=== PATIENT | female | born 1940 | race African-American/Black ===

== ENCOUNTER 2018-01-21 11:41 | Inpatient (IN) | payer MEDICARE, MEDICAID ==
[~2018-01-21] VITALS: Ht 167.6 cm; Wt 58.9 kg
--- NOTE | ~2018-01-21 | MORECARE ---
CASE MANAGEMENT DISCHARGE SUMMARY PATIENT: SHAWNEE OCHOA UNIT: [id number] ADM DATE: 01/21/18 AGE: 77 : 38 SEX: F ROOM/BED: D.6211 AUTHOR: AL,DOC PHYSICIAN: REFERRING PHYSICIAN: MEJIA TINSLEY MD DATE OF SERVICE: 02/02/18 Discharge Plan Patient Name: SHAWNEE OCHOA Facility: [facility]:[place] : 1940 Planned Disposition: Nursing Facility [facility] Cert Anticipated Discharge Date: 02/02/18 Discharge Date: Expected LOS: 12 Initial Reviewer: MIKAEL Initial Review Date: 01/24/2018 Generated: 02/02/18 12:47 pm Comments DCP- Discharge Planning Updated by MIKAEL: James Burns on 02/02/18 10:[address] Patient Name: SHAWNEE OCHOA Encounter No: [id number] : 1940 Primary Insurance: [facility] [employer] Anticipated DC Date: 02-02-2018 Planned Disposition: Nursing Facility [facility] Cert External Planned Provider: [facility], [facility] MEDICAID BED DCP follow-up note: ANSHUL RECEIVED CALL FROM LEWIS OF [facility], . LEWIS RECEIVED UPDATE FROM ANSHUL, LEWIS HAS TALKED TO RACHEL AT [facility] OUTPATIENT DIALYSIS AND PATIENT HAS BEEN ACCEPTED WITH SCHEDULE FOR MWF, 1100AM, THE [facility] CAN ACCOMODATE THIS SCHEDULE AND WILL ACCEPT PT BACK TODAY. ANSHUL NOTIFIED PATIENT PATHWAYS COORDINATOR MANNY VIEYRA WHO [facility]NA CONTACT DIALYSIS UNIT TO CONFIRM ARRANGEMENT. LEWIS REPORTS PT WAS NOT ABLE TO SIT FOR DURATION OF TRANSPORT TO [place] PRIOR TO ADMISSION AND WILL LIKELY REQUIRE AMBULANCE TO GET BACK TO [place] TODAY. PT NOTIFIED AND IN AGREEMENT WITH RETURN TO [facility]IOR [facility] TODAY. IMPORTANT MESSAGE FROM MEDICARE PROVIDED AND EXPLAINED. DHARMESH JARVIS NOTIFIED. CARBONATING STONE CLEANER NURSE NOTIFIED. FOR DISCHARGE BACK TO [facility], CALL NURSE REPORT TO [facility] AT [phone]. FAX DISCHARGE INFORMATION TO [facility] AT [phone]. PT TO TRANSPORT VIA AMBULANCE. Roll Coating Machine Operator: James Burns. DCP- Discharge Planning Updated by [id number]: James Burns on 02/01/18 9:[address] Patient Name: SHAWNEE OCHOA Encounter No: [id number] : 1940 Primary Insurance: [facility] [employer] SOL[employer]IONS Anticipated DC Date: Planned Disposition: Nursing Facility [facility] Cert External Planned Provider: [facility] TER[facility] MEDICAID BED DCP follow-up note: ANSHUL RECEIVED CALL FROM LEWIS OF [facility], . LEWIS RECEIVED UPDATE FROM , NOTIFIED PT WILL REQUIRE OUTPATIENT DIALYSIS AND PATIENT PATHWAYS COORDINATOR HAS REQUESTED TUESDAY,TUESDAY, TUESDAY OUTPATIENT DIALYSIS SCHEDULE. LEWIS WILL CALL DIALYSIS CENTER ALSO TO ENSURE SCHEDULE THE [facility] CAN ACCOMODATE IS RECEIVED. PT WILL NEED A Tuesday SCHEDULE FOR THE [facility] TO ACCEPT BACK FOR [facility] THEY DO NOT HAVE WEEKEND TRANSPORTATION FOR DIALYSIS. ANSHUL FAXED UPDATE TO [facility] AT [phone]. CM WAITING OUTPATIENT DIALYSIS SCHEDULE ARRANGEMENT. FOR DISCHARGE BACK TO [facility], CALL NURSE REPORT TO [facility] AT [phone]. FAX DISCHARGE INFORMATION TO [facility] AT [phone]. [facility] TO ARRANGE VAN TRANSPORTATION. Roll Coating Machine Operator: James Burns. DCP- Discharge Planning Updated by [id number]: James Burns on 01/25/18 2:[address] Patient Name: SHAWNEE OCHOA Encounter No: [id number] : 1940 Primary Insurance: [facility] [employer] SOLUTIONS Anticipated DC Date: Planned Disposition: Nursing Facility [facility] Cert External Planned Provider: [facility] TER[facility] MEDICAID BED DCP follow-up note: ANSHUL RECEIVED CALL FROM LEWIS OF [facility], . LEWIS RECEIVED UPDATE FROM ANSHUL AND WANTED PROJECTED DATE THAT PT MAY NEED DIALYSIS. ANSHUL SPOKE TO RENAL NURSE JAX WHO REPORTS NO WAY TO PREDICT THIS AT THIS TIME. LEWIS ALSO WANTED CM TO KNOW THAT IF PT NEEDS DIALYSIS, SHE WILL NEED A Tuesday SCHEDULE FOR THE [facility] TO ACCEPT BACK FOR [facility] THEY DO NOT HAVE WEEKEND TRANSPORTATION FOR DIALYSIS. FOR DISCHARGE BACK TO [facility], CALL NURSE REPORT TO [facility] AT [phone]. FAX DISCHARGE INFORMATION TO [facility] AT [phone]. [facility] TO ARRANGE VAN TRANSPORTATION. Roll Coating Machine Operator: James Burns. DCP- Discharge Planning Updated by [id number]: James Burns on 01/24/18 1:[address] Patient Name: SHAWNEE OCHOA Admission Status: Elective Accout number: [id number] Admission Date: 01-21-2018 : 1940 Admission Diagnosis:GENERALIZED EDEMA Attending: MEJAI TINSLEY Current LOS: 3 Anticipated DC Date: Planned Disposition: Nursing Facility [facility] Primary Insurance: [facility] [employer] SOLUTIONS PLANNED EXTERNAL PROVIDER: [facility], LONG TERM C[facility] MEDICAID BED Discharge Planning Comments: * Is the patient Alert and Oriented? Yes 0 * How many steps to enter\exit or inside your home? NONE 0 * PCP DR. DESIRAE DEAN 0 * Pharmacy [facility] [place] 0 * Preadmission Environment [facility] 0 * Facility Name [facility] [phone] * ADLs Partial Dependent 0 * Partial ADLs (Assistance needed) Ambulation Bathing Medication Management Transfers 0 * Equipment Other 0 * Other Equipment ALL MEDICAL EQUIPMENT PROVIDED BY FACILITY 0 * List name and contact numbers for known caregivers / representatives who currently or will assist patient after discharge: MILO LUNDBERG, SISTER, 0 * Verbal permission to speak to the caregivers and representatives has been obtained from the patient. N/A 0 * Community resources currently utilized None 0 * Please name any agencies selected above. NONE 0 * Additional services required to return to the preadmission environment? No 0 * Can the patient safely return to the preadmission environment? Yes 0 * Has this patient been hospitalized within the prior 30 days at any hospital? Yes 0 CM RECEIVED ORDER FOR INPATIENT REHAB PRESCREENING; CM WITH PT IN ROOM TO DISCUSS DISCHARGE PLANNING AND NEEDS. PT REPORTS LIVING AT [facility] IN [place]; SHE WENT TO REHAB AND NOW STAYS THERE. PT HAS WALKER AND BEDSIDE COMMODE PROVIDED BY FACILITY. CM DISCUSSED AVAILABILITY OF HOME HEALTH, REHAB SERVICES AND MEDICAL EQUIPMENT. PT DOES NOT WANT TO STAY AT [facility] FOR REHAB AND WOULD LIKE TO RETURN TO [facility] SHE WILL BE CLOSE TO FAMILY AND THEY CAN VISIT HER THERE. IMPORTANT MESSAGE FROM MEDICARE PROVIDED AND EXPLAINED. CM NOTIFIED YOJANA OF INPATIENT REHAB. CM CALLED [facility], , SPOKE TO [place] WHO INFORMED CM THAT PT IS IN MEDICAID [facility] BED AND WILL RETURN TO THE FACILITY IN [facility] THEY DO NOT THINK PT HAS ANY SKILLED DAYS REMAINING. CM SPOKE TO NURSE BRINK, PROVIDED HOSPITAL UPDATE. CM FAXED UPDATE TO [facility] AT [phone]. PT DECLINES INPATIENT REHAB, WANTS TO RETURN TO [facility] WHERE SHE LIV[facility]. FOR DISCHARGE BACK TO [facility], CALL NURSE REPORT TO [facility] AT [phone]. FAX DISCHARGE INFORMATION TO [facility] AT [phone]. [facility] TO ARRANGE VAN TRANSPORTATION. Roll Coating Machine Operator: James Burns DCPIA - Discharge Planning Initial Assessment Updated by [id number]: James Burns on 01/24/18 2:23 pm * Is the patient Alert and Oriented? Yes * How many steps to enter\exit or inside your home? NONE * PCP DR. DESIRAE DEAN * Pharmacy [facility] [place] * Preadmission Environment [facility] * Facility Name [facility] [phone] * ADLs Partial Dependent * Partial ADLs (Assistance needed) Ambulation Bathing Medication Management Transfers * Equipment Other * Other Equipment ALL MEDICAL EQUIPMENT PROVIDED BY FACILITY * List name and contact numbers for known caregivers / representatives who currently or will assist patient after discharge: MILO LUNDBERG, SISTER, * Verbal permission to speak to the caregivers and representatives has been obtained from the patient. N/A * Community resources currently utilized None * Please name any agencies selected above. NONE * Additional services required to return to the preadmission environment? No * Can the patient safely return to the preadmission environment? Yes * Has this patient been hospitalized within the prior 30 days at any hospital? Yes Coverage Notice Reviewer: [id number] - James Burns Notice Issued Date-Time: 01/24/2018 13:30 Notice Type: IM Discharge Notice Notice Delivered To: Patient Relationship to Patient: Roller Machine Operator Name: Delivery Method: HAND - Hand Delivered Maureen Days: Prior Verbal Notification: Recipient Understood Notice: Yes Recipient Signature: Yes Med Rec Note Co-signed by Attending: Coverage Notice Comment: Reviewer: [id number] - James Burns Notice Issued Date-Time: 02/02/2018 11:25 Notice Type: IM Discharge Notice Notice Delivered To: Patient Relationship to Patient: Roller Machine Operator Name: Delivery Method: HAND - Hand Delivered Maureen Days: Prior Verbal Notification: Recipient Understood Notice: Yes Recipient Signature: Yes Med Rec Note Co-signed by Attending: Coverage Notice Comment: Last DP export: 02/01/18 9:39 Patient Name: SHAWNEE OCHOA Page [id number] at 1147 All edits/amendments must be made on the electronic document DICTATION DATE: 02/02/18 1147 FAMILY CONSUMER SCIENTIST: GEOVANNA 02/02/18 1147 RPT#: [id number] DC DATE: STATUS: ADM IN [facility] [address] [place] [address] END OF REPORT
--- NOTE | ~2018-01-21 | OP ---
PATIENT NAME: SHAWNEE OCHOA MEDICAL RECORD: [id number] :[birth year] LOCATION:D.M2 D.2120 ADMISSION DATE:01/21/18 SURGEON: BONY TELLO MD DATE OF OPERATION: 01/26/2018 PREOPERATIVE DIAGNOSIS: End-stage renal disease without chronic access for hemodialysis. POSTOPERATIVE DIAGNOSES: End-stage renal disease without chronic access for hemodialysis with numerous side branches off the cephalic vein, also thrombus within the cephalic vein, and heavily calcified radial artery. PROCEDURES: 1. Placement of left wrist radiocephalic arteriovenous fistula for hemodialysis access. 2. Catheter thrombectomy of cephalic vein with #3 Cody catheter. 3. Open ligation of side branches off the cephalic vein times 5. 4. Placement of right internal jugular HemoSplit catheter, 19 cm, under fluoroscopic guidance. 5. Immediate surgeon interpretation of the fluoroscopic images. 6. Open endarterectomy of radial artery. SURGEON: Bony Tello MD CHILD CARE ATTENDANT [employer]: None. BLOOD LOSS: 100 cc. ANESTHESIA: General. COMPLICATIONS: None. No radiologist was present for this procedure. Static fluoroscopic images were obtained. The images are kept in the PACS system. The surgeon interpretation of the radiographic images is dictated within the body of this operative note. I specifically discussed with the patient the risk that the fistula may not mature, may require a revision, or may need to be converted to a graft. Unfortunately, the patient had a number of IVs. This includes IVs at both cubital fossae as well as the left cephalic vein. The patient was conveyed to the operating room electively on 01/26/2018. General anesthesia was induced by the anesthesia staff. The left upper extremity was sterilely prepped and draped. I interrogated the left upper extremity with the ultrasound. The best target vessel appeared to be the cephalic vein at the wrist. The IV that was present there was removed. I reprepped the wrist and hand. An axial incision was accomplished over the distal forearm and the wrist on the volar surface. I dissected down to the radial artery which was of poor quality and very calcified. I tried to occlude the radial artery with vessel loops and this was not successful. I ligated and divided both the paired radial veins. An incision was accomplished on the radial artery. I encountered pulsatile OPERATIVE REPORT [id number] SHAWNEE OCHOA blood that could not be controlled with vessel loops. Therefore, vascular clamps were applied. The radial artery was heavily calcified. I then dissected out the cephalic vein. Side branches of the cephalic vein were ligated. I then incised the cephalic vein, creating a nunn. I was going to have a difficult time performing the anastomosis because of the heavily calcified radial artery. It was going to be a very difficult, if not impossible, to drive the needle through this heavily calcified artery. Also, the lumen was very small due to the heavy calcification. Therefore, an endarterectomy was indicated. Utilizing the endarterectomy spatula, I performed a localized endarterectomy of the radial artery. There was retrograde flow in the radial artery as well as antegrade flow and it was brisk both ways. The radial artery was controlled with vascular clamps. The cephalic vein was found to contain thrombus. I advanced a #3 Cody catheter up the cephalic vein and passed this about 5 times, removing all the thrombus that I could identify. The cephalic vein was somewhat sclerotic. I dilated with vascular dilators up to 3.5 mm. I then punched out some ovals in the radial artery with an aortic punch. I performed a side-to-end arterial to venous anastomosis with a running 6-0 Prolene suture. I then flushed out through the cephalic vein. There was thrill as well as pulsatile flow with a prolonged diastolic component. Under ultrasound, I could identify some side branches off of the cephalic vein. Small incisions were accomplished over the side branches and they were ligated with silk ties. A topical hemostatic agent was applied to the anastomosis. The skin incisions at the side branch ligation sites were closed with interrupted 3-0 Vicryls except one at the cubital fossa, which was closed with interrupted 3-0 Vicryls and then a running intracuticular 3-0 Vicryl. The main incision at the radiocephalic anastomosis was closed with interrupted 3-0 Vicryls for the subcutaneous tissues and then a running intracuticular 4-0 Vicryl for the skin. Dermabond was then applied to all the operative sites. Attention was then turned to placement of the HemoSplit catheter. The patient was positioned in the Trendelenburg position. The right neck and chest were sterilely prepped and draped. I percutaneously accessed right internal jugular vein under ultrasonographic guidance. A guidewire passed easily. This was visualized under fluoroscopy. An incision was accomplished around the guidewire. A counterincision was accomplished in the right anterior-superior infraclavicular chest. I tunneled a 19-cm HemoSplit catheter from the chest incision to the neck incision. Over the wire, I dilated to a larger size. This was visualized under fluoroscopy. A dilator sheath was advanced over the wire. The dilator and wire were removed. Through the peel-away sheath, I advanced the tips of the HemoSplit catheter. The Peel-Away sheath was then removed. I then pulled back on the hubs of the HemoSplit catheter to seat the cuff in the subcutaneous tissues. Under fluoroscopy, an image was obtained over the right lung apex. There was no pneumothorax. No radiographic evidence of complication. No kinking or twisting of the HemoSplit catheter. Another image was obtained over the mediastinum. It revealed that the longest HemoSplit OPERATIVE REPORT [id number] SHAWNEE OCHOA catheter tip appeared to be at the cavoatrial junction. The neck incision was closed with an intracuticular 3-0 Vicryl as well as a single 3-0 Vicryl in a horizontal mattress fashion. The flange of the HemoSplit catheter was sutured to the underlying skin with 2-0 nylons. Both lumens of the HemoSplit catheter flushed easily and aspirated dark, nonpulsatile blood. The lumens of the HemoSplit catheter were flushed with the appropriate amount of concentrated heparin. I then placed sterile dressings over the operative sites. The patient was then extubated and conveyed to the postanesthesia care unit, where she was in stable condition. TRANSINT:[id number] Voice Confirmation ID: [id number] DOCUMENT ID: [id number] BONY TELLO MD at 1707 CC: LICHA UP MD and MEJIA TINSLEY MD [id number] DICTATION DATE: 01/29/182126 FACIAL OPERATOR: 01/29/182346 ADM IN [facility] [address] [place] [address]
--- NOTE | ~2018-01-21 | EC ---
PATIENT:SHAWNEE OCHOA DATE OF SERVICE: 01/21/18 SEX: F MEDICAL RECORD: [id number] DATE OF : [birth year] LOCATION:D.M2 D.212 AGE OF PATIENT: 77 ADMISSION DATE: 01/21/18 REFERRING PHYSICIAN: INTERPRETING PHYSICIAN: TRINA CARRINGTON MD ECHOCARDIOGRAM REPORT ECHO CHARGES 4 ECHO COMPLETE Date: 01/23/17 CLINICAL DIAGNOSIS: DYSPNEA/CHF ECHOCARDIOGRAPHIC MEASUREMENTS (adult normal given) AC root (d.<3.7cm) 3.0 cm LV Septum d (<1.2 cm> 1.0 cm Valve Excursion 1.7 cm LV Septum (systole) 1.5 cm Left Atria (s.<4.0cm> 4.3 cm LVPW d(<1.2cm) 1.4 cm RV (d.<2.3cm) 3.3 cm LVPW (sytole) 1.8 cm LV diastole(<5.6CM) 5.9 cm MV E-F(>70mm/sec) cm LV systole 4.9 cm LVOT Diameter 1.7 cm MV exc.(>10mm) cm Est.ejection fraction (50-75%) % DOPPLER: LVIT cm/sec A 92.0 cm/sec E 155 cm/sec LA cm/sec RVSP 50.4 mmHg LVOT 60.0 cm/sec AOP1/2T m/s Asc. Ao 126 cm/sec RVOT 51.0 cm/sec RA cm/sec PA 110 cm/sec AV Gradient Peak 6.4 mmHg AV Mean 3.1 mmHg AV Area 0.8 cm MV Gradient Peak 9.0 mmHg MV Mean 2.9 mmHg MV Area cm COMMENTS: Senior Policy Advisor: 1 SE HANSENOE Pattern Grader Supervisor: 3 Dr. Jaramillo TAPE# PACS Pericardial Effusion N DATE OF SERVICE: Adequate 2-D echo, color flow and spectral Doppler, and M-mode. No LVH. LV internal dimensions are normal. Wall motion is normal. EF is greater than 55%. TRANSINT:[id number] Voice Confirmation ID: [id number] DOCUMENT ID: [id number] ECHOCARDIOGRAM REPORT [id number] SHAWNEE OCHOA TRINA CARRINGTON MD at 0829 CC: [id number] DICTATION DATE: 01/23/18 1035 NIGHT SHIFT SUPERVISOR: 01/23/18 1317 ADM IN [facility] [address] [place] [address]
--- NOTE | ~2018-01-21 | MORECARE ---
CASE MANAGEMENT DISCHARGE SUMMARY PATIENT: SHAWNEE OCHOA UNIT: [id number] ADM DATE: 01/21/18 AGE: 77 : 38 SEX: F ROOM/BED: D.8876 AUTHOR: AL,DOC PHYSICIAN: REFERRING PHYSICIAN: MEJIA TINSLEY MD DATE OF SERVICE: 02/02/18 Discharge Plan Patient Name: SHAWNEE OCHOA Facility: [facility]:[place] : 1940 Planned Disposition: Nursing Facility IVANA Cert Anticipated Discharge Date: 02/02/18 Discharge Date: Expected LOS: 12 Initial Reviewer: [id number] Initial Review Date: 01/24/2018 Generated: 02/02/18 2:45 pm Comments DCP- Discharge Planning Updated by [id number]: James Burns on 02/02/18 12:[address] Patient Name: SHAWNEE OCHOA Encounter No: [id number] : 1940 Primary Insurance: [facility] MEDICARE SOLUTIONS Anticipated DC Date: 02-02-2018 Planned Disposition: Nursing Facility IVANA Cert External Planned Provider: [place], LONG TERM CARE MEDICAID BED DCP follow-up note: ANSHUL RECEIVED CALL FROM LEWIS OF [facility], . LEWIS RECEIVED UPDATE FROM ANSHUL, LEWIS HAS TALKED TO RACHEL AT [facility] OUTPATIENT DIALYSIS AND PATIENT HAS BEEN ACCEPTED WITH SCHEDULE FOR MWF, 1100AM, THE ASSISTED CAN ACCOMODATE THIS SCHEDULE AND WILL ACCEPT PT BACK TODAY. ANSHUL NOTIFIED PATIENT PATHWAYS COORDINATOR MANNY VIEYRA WHO ENA CONTACT DIALYSIS UNIT TO CONFIRM ARRANGEMENT. LEWIS REPORTS PT WAS NOT ABLE TO SIT FOR DURATION OF TRANSPORT TO [place] PRIOR TO ADMISSION AND WILL LIKELY REQUIRE AMBULANCE TO GET BACK TO [place] TODAY. PT NOTIFIED AND IN AGREEMENT WITH RETURN TO ASSISTED TODAY. IMPORTANT MESSAGE FROM MEDICARE PROVIDED AND EXPLAINED. DHARMESH JARVIS NOTIFIED. PARTY PLAN SELLING DISTRIBUTOR NURSE NOTIFIED. FOR DISCHARGE BACK TO GROUP HOME [facility], CALL NURSE REPORT TO [facility] AT [phone]. FAX DISCHARGE INFORMATION TO [facility] AT [phone]. PT TO TRANSPORT VIA AMBULANCE. High School Librarian: James Burns. Appended by James Burns on 02/02/2018 13:43 CDT: CM RECEIVED DISCHARGE ORDER, FAXED DISCHARGE INFORMATION TO [facility] AT [phone]. MANNY OF PATIENT PATHWAYS VERIFIED DIALYSIS CLINIC ARRANGEMENT PROVIDED BY ASSISTED, CM RECEIVED WELCOME LETTER, PLACED IN CHART. CALL NURSE REPORT TO [facility] AT [phone]. PT TO TRANSPORT VIA AMBULANCE. High School Librarian: James Burns. DCP- Discharge Planning Updated by [id number]: James Burns on 02/01/18 9:[address] Patient Name: SHAWNEE OCHOA Encounter No: [id number] : 1940 Primary Insurance: [facility] MEDIC[facility] SOLUTIONS Anticipated DC Date: Planned Disposition: Nursing Facility [facility] Cert External Planned Provider: [place], LONG TERM CARE MEDICAID BED DCP follow-up note: ANSHUL RECEIVED CALL FROM LEWIS OF [facility], . LEWIS RECEIVED UPDATE FROM , NOTIFIED PT WILL REQUIRE OUTPATIENT DIALYSIS AND PATIENT PATHWAYS COORDINATOR HAS REQUESTED TUESDAY,TUESDAY, TUESDAY OUTPATIENT DIALYSIS SCHEDULE. LEWIS WILL CALL DIALYSIS CENTER ALSO TO ENSURE SCHEDULE THE ASSISTED CAN ACCOMODATE IS RECEIVED. PT WILL NEED A Tuesday SCHEDULE FOR THE ASSISTED TO ACCEPT BACK FOR DIRECTOR OF INVESTIGATIONS CARE THEY DO NOT HAVE WEEKEND TRANSPORTATION FOR DIALYSIS. ANSHUL FAXED UPDATE TO [facility] AT [phone]. CM WAITING OUTPATIENT DIALYSIS SCHEDULE ARRANGEMENT. FOR DISCHARGE BACK TO [facility] HOME [facility], CALL NURSE REPORT TO [facility] AT [phone]. FAX DISCHARGE INFORMATION TO [facility] AT [phone]. [facility] TO ARRANGE VAN TRANSPORTATION. High School Librarian: James Burns. DCP- Discharge Planning Updated by [id number]: James Burns on 01/25/18 2:[address] Patient Name: SHAWNEE OCHOA Encounter No: [id number] : 1940 Primary Insurance: [facility] MED[facility] SOLUTIONS Anticipated DC Date: Planned Disposition: Nursing Facility [facility] Cert External Planned Provider: [facility] MEDICAID BED DCP follow-up note: ANSHUL RECEIVED CALL FROM LEWIS OF [facility], . LEWIS RECEIVED UPDATE FROM CM AND WANTED PROJECTED DATE THAT PT MAY NEED DIALYSIS. CM SPOKE TO RENAL NURSE JAX WHO REPORTS NO WAY TO PREDICT THIS AT THIS TIME. LEWIS ALSO WANTED CM TO KNOW THAT IF PT NEEDS DIALYSIS, SHE WILL NEED A Tuesday SCHEDULE FOR THE ASSISTED TO ACCEPT BACK FOR DIRECTOR OF INVESTIGATIONS CARE THEY DO NOT HAVE WEEKEND TRANSPORTATION FOR DIALYSIS. FOR DISCHARGE BACK TO DIRECTOR OF INVESTIGATIONS CARE, CALL NURSE REPORT TO [facility] AT [phone]. FAX DISCHARGE INFORMATION TO [facility] AT [phone]. [facility] TO ARRANGE VAN TRANSPORTATION. High School Librarian: James Burns. DCP- Discharge Planning Updated by [id number]: James Burns on 01/24/18 1:[address] Patient Name: SHAWNEE OCHOA Admission Status: Elective Accout number: [id number] Admission Date: 01-21-2018 : 1940 Admission Diagnosis:GENERALIZED EDEMA Attending: MEJIA TINSLEY Current LOS: 3 Anticipated DC Date: Planned Disposition: Nursing Facility [facility] Primary Insurance: [facility] MEDIC[facility] SOLUTIONS PLANNED EXTERNAL PROVIDER: [facility], LONG TERM CARE MEDICAID BED Discharge Planning Comments: * Is the patient Alert and Oriented? Yes 0 * How many steps to enter\exit or inside your home? NONE 0 * PCP DR. DESIRAE DEAN 0 * Pharmacy [facility] IN [place] 0 * Preadmission Environment Skilled Nursing [facility] 0 * [facility] [phone] 0 * ADLs Partial Dependent 0 * Partial ADLs (Assistance needed) Ambulation Bathing Medication Management Transfers 0 * Equipment Other 0 * Other Equipment ALL MEDICAL EQUIPMENT PROVIDED BY FACILITY 0 * List name and contact numbers for known caregivers / representatives who currently or will assist patient after discharge: MILO LUNDBERG, SISTER, 0 * Verbal permission to speak to the caregivers and representatives has been obtained from the patient. N/A 0 * Community resources currently utilized None 0 * Please name any agencies selected above. NONE 0 * Additional services required to return to the preadmission environment? No 0 * Can the patient safely return to the preadmission environment? Yes 0 * Has this patient been hospitalized within the prior 30 days at any hospital? Yes 0 CM RECEIVED ORDER FOR INPATIENT REHAB PRESCREENING; CM WITH PT IN ROOM TO DISCUSS DISCHARGE PLANNING AND NEEDS. PT REPORTS LIVING AT [facility] IN [place]; SHE WENT TO REHAB AND NOW STAYS THERE. PT HAS WALKER AND BEDSIDE COMMODE PROVIDED BY FACILITY. CM DISCUSSED AVAILABILITY OF HOME HEALTH, REHAB SERVICES AND MEDICAL EQUIPMENT. PT DOES NOT WANT TO STAY AT [place] FOR REHAB AND WOULD LIKE TO RETURN TO [facility] SHE WILL BE CLOSE TO FAMILY AND THEY CAN VISIT HER THERE. IMPORTANT MESSAGE FROM MEDICARE PROVIDED AND EXPLAINED. CM NOTIFIED YOJANA OF INPATIENT REHAB. CM CALLED [facility], , SPOKE TO BENTON WHO INFORMED CM THAT PT IS IN MEDICAID DIRECTOR OF INVESTIGATIONS CARE BED AND WILL RETURN TO THE FACILITY IN DIRECTOR OF INVESTIGATIONS CARE THEY DO NOT THINK PT HAS ANY SKILLED DAYS REMAINING. CM SPOKE TO NURSE BRINK, PROVIDED HOSPITAL UPDATE. CM FAXED UPDATE TO [facility] AT [phone]. PT DECLINES INPATIENT REHAB, WANTS TO RETURN TO [facility] WHERE SHE LIVES. FOR DISCHARGE BACK TO DIRECTOR OF INVESTIGATIONS CARE, CALL NURSE REPORT TO [facility] AT [phone]. FAX DISCHARGE INFORMATION TO [facility] AT [phone]. [facility] TO ARRANGE VAN TRANSPORTATION. High School Librarian: James Burns DCPIA - Discharge Planning Initial Assessment Updated by [id number]: James Burns on 01/24/18 2:23 pm * Is the patient Alert and Oriented? Yes * How many steps to enter\exit or inside your home? NONE * PCP DR. DESIRAE DEAN * Pharmacy [facility] [place] * Preadmission Environment Blend Plant Operator [facility] * Facility Name [facility] [phone] * ADLs Partial Dependent * Partial ADLs (Assistance needed) Ambulation Bathing Medication Management Transfers * Equipment Other * Other Equipment ALL MEDICAL EQUIPMENT PROVIDED BY FACILITY * List name and contact numbers for known caregivers / representatives who currently or will assist patient after discharge: MILO LUNDBERG, SISTER, * Verbal permission to speak to the caregivers and representatives has been obtained from the patient. N/A * Community resources currently utilized None * Please name any agencies selected above. NONE * Additional services required to return to the preadmission environment? No * Can the patient safely return to the preadmission environment? Yes * Has this patient been hospitalized within the prior 30 days at any hospital? Yes Coverage Notice Reviewer: [id number] Burns Notice Issued Date-Time: 01/24/2018 13:30 Notice Type: IM Discharge Notice Notice Delivered To: Patient Relationship to Patient: Postpartum Nurse Name: Delivery Method: HAND - Hand Delivered Maureen Days: Prior Verbal Notification: Recipient Understood Notice: Yes Recipient Signature: Yes Med Rec Note Co-signed by Attending: Coverage Notice Comment: Reviewer: MIKAEL Burns Notice Issued Date-Time: 02/02/2018 11:25 Notice Type: IM Discharge Notice Notice Delivered To: Patient Relationship to Patient: Postpartum Nurse Name: Delivery Method: HAND - Hand Delivered Maueren Days: Prior Verbal Notification: Recipient Understood Notice: Yes Recipient Signature: Yes Med Rec Note Co-signed by Attending: Coverage Notice Comment: Last DP export: 02/02/18 10:47 Patient Name: SHAWNEE OCHOA Page 14837 at 1345 All edits/amendments must be made on the electronic document DICTATION DATE: 02/02/18 1345 BEAUTY PARLOR CLEANER: GEOVANNA 02/02/18 1345 RPT#: [id number] DC DATE: STATUS: ADM IN [facility] [address] [place] [address] END OF REPORT
--- NOTE | ~2018-01-21 | CN ---
PATIENT NAME:SHAWNEE JOY MEDICAL RECORD: [id number] : 36 LOCATION:[facility] D.2120 ADMIT DATE: 01/21/18 ACCOUNT: [id number] CONSULTING PHYSICIAN: VENKAT CABRERA MD REFERRING PHYSICIAN: MEJIA TINSLEY MD DATE OF CONSULTATION: 01/22/2018 CONSULT REQUESTING PHYSICIAN: Nikky Benavides MD REASON FOR CONSULTATION: Pneumonia. HISTORY OF PRESENT ILLNESS: Ms. Joy is a 77-year-old -[place] female who is very poor historian. The patient was coughing and some shortness of breath. She was seen in local ER and found out that she has ucmmk-et-tsbhbee renal failure. The patient was transferred for advanced care to [facility]. According to the patient, she has cough, which is productive with very little sputum. Denies any fever and chill. There is no chest pain. She is also complaining of shortness of breath with mild exertion. She is also having orthopnea. REVIEW OF THE SYSTEMS: As in history of present illness. PAST MEDICAL HISTORY: 1. Chronic kidney disease. 2. Hypertension. 3. CHF with chronic systolic dysfunction. 4. History of anemia, consistent with iron-deficiency anemia. She is seeing a film developer. 5. History of pneumonia. 6. Diabetes mellitus. 7. Hypertension. 8. Dementia. PAST SURGICAL HISTORY: She had cholecystectomy. ALLERGY: No known drug allergy. MEDICATIONS: Mirimus was reviewed. PERSONAL AND SOCIAL HISTORY: The patient never smoked and nondrinker. FAMILY HISTORY: Significant for cardiovascular disease. PHYSICAL EXAMINATION: GENERAL: Now, the patient is lying comfortably in bed. She is not in acute distress. VITAL SIGNS: The blood pressure is 148/68, pulse is 65, respiration is 18, temperature is 97.5, and SpO2 is 99% on 4 liters nasal cannula. HEENT: Conjunctivae are pale. Sclerae are not icteric. NECK: Neck is supple. No JVD. CHEST: There are bilateral crackles with some wheezing on forceful expiration. HEART: Rhythm regular. Normal sound. No murmur. ABDOMEN: Abdomen is soft. Bowel sounds present. No hepatosplenomegaly. RECTAL: Deferred. EXTREMITIES: No cyanosis. No clubbing. There is 1+ pedal edema. CONSULT REPORT [id number] GABRIELA,ARMA R LABORATORY DATA: CBC; WBC 10.3, hemoglobin 8.6, hematocrit 26.5, and platelet count is 195. Chemistry; sodium 139, potassium 4.8, BUN is 64, creatinine 4.1, and glucose 116. DIAGNOSTIC DATA: Chest radiograph with bilateral patchy infiltrate, possible right-sided pleural effusion. IMPRESSION: 1. Acute hypoxic respiratory failure. 2. Bilateral pneumonia, most likely community-acquired pneumonia. 3. Dyspnea secondary to pneumonia, possible pulmonary edema. 4. Xdlny-gc-laphlgb CKD. 5. Anemia of chronic kidney disease. 6. CHF, chronic systolic dysfunction. RECOMMENDATION: 1. Continue Levaquin and Rocephin. 2. Followup chest radiograph and labs. We will check proBNP. 3. Supplemental oxygen as required. 4. DVT prophylaxis. 5. Albuterol/ipratropium nebulizer p.r.n. for wheezing. Dr. Benavides, thank you for involving me in the care of Ms. Joy. TRANSINT:[id number] Voice Confirmation ID: [id number] DOCUMENT ID: [id number] VENKAT CABRERA MD CC: [id number] DICTATION DATE: 01/22/18 1438 STRAIGHTENING MACHINE OPERATOR: 01/22/18 1510 ADM IN [facility] [address] [place] [address]
--- NOTE | ~2018-01-21 | MORECARE ---
CASE MANAGEMENT DISCHARGE SUMMARY PATIENT: SHAWNEE OCHOA UNIT: [id number] ADM DATE: 01/21/18 AGE: 77 : 38 SEX: F ROOM/BED: D.5169 AUTHOR: AL,DOC PHYSICIAN: REFERRING PHYSICIAN: MEJIA TINSLEY MD DATE OF SERVICE: 02/01/18 Discharge Plan Patient Name: SHAWNEE OCHOA Facility: [facility]:[place] : 1940 Planned Disposition: Nursing Facility IVANA Cert Anticipated Discharge Date: Discharge Date: Expected LOS: Initial Reviewer: [id number] Initial Review Date: 01/24/2018 Generated: 02/01/18 11:39 am Comments DCP- Discharge Planning Updated by [email or web address]: James Burns on 02/01/18 9:[address] Patient Name: SHAWNEE OCHOA Encounter No: [id number] : 1940 Primary Insurance: [facility] MEDICARE SOLUTIONS Anticipated DC Date: Planned Disposition: Nursing Facility [facility] Cert External Planned Provider: [facility], LONG TERM CARE MEDICAID BED DCP follow-up note: ANSHUL RECEIVED CALL FROM LEWIS OF [facility], . LEWIS RECEIVED UPDATE FROM ANSHUL, NOTIFIED PT WILL REQUIRE OUTPATIENT DIALYSIS AND PATIENT PATHWAYS COORDINATOR HAS REQUESTED TUESDAY,TUESDAY, TUESDAY OUTPATIENT DIALYSIS SCHEDULE. LEWIS WILL CALL DIALYSIS CENTER ALSO TO ENSURE SCHEDULE THE HALFWAY CAN ACCOMODATE IS RECEIVED. PT WILL NEED A Tuesday SCHEDULE FOR THE HALFWAY TO ACCEPT BACK FOR INTERMEDIATE CARE THEY DO NOT HAVE WEEKEND TRANSPORTATION FOR DIALYSIS. ANSHUL FAXED UPDATE TO [facility] AT [phone]. WAITING OUTPATIENT DIALYSIS SCHEDULE ARRANGEMENT. FOR DISCHARGE BACK TO INTERMEDIATE CARE, CALL NURSE REPORT TO [facility] AT [phone]. FAX DISCHARGE INFORMATION TO [facility] AT [phone]. [facility] TO [facility]RANGE VAN TRANSPORTATION. Stock Letterer: James Burns. DCP- Discharge Planning Updated by [id number]: James Burns on 01/25/18 2:[address] Patient Name: SHAWNEE OCHOA Encounter No: [id number] : 1940 Primary Insurance: [facility] MEDICARE SOLUTIONS Anticipated DC Date: Planned Disposition: Nursing Facility [facility] Cert External Planned Provider: [facility]; LONG TERM CARE MEDICAID BED DCP follow-up note: ANSHUL RECEIVED CALL FROM LEWIS OF [facility], . LEWIS RECEIVED UPDATE FROM CM AND WANTED PROJECTED DATE THAT PT MAY NEED DIALYSIS. ANSHUL SPOKE TO RENAL NURSE JAX WHO REPORTS NO WAY TO PREDICT THIS AT THIS TIME. LEWIS ALSO WANTED CM TO KNOW THAT IF PT NEEDS DIALYSIS, SHE WILL NEED A Tuesday SCHEDULE FOR THE HALFWAY TO ACCEPT BACK FOR COMPUTER SYSTEMS ARCHITECT CARE THEY DO NOT HAVE WEEKEND TRANSPORTATION FOR DIALYSIS. FOR DISCHARGE BACK TO INTERMEDIATE CARE, CALL NURSE REPORT TO [facility] AT [phone]. FAX DISCHARGE INFORMATION TO [facility] AT [phone]. [facility]SP[facility]. Stock Letterer: James Burns. DCP- Discharge Planning Updated by [id number]: James Burns on 01/24/18 1:[address] Patient Name: SHAWNEE OCHOA Admission Status: Elective Accout number: [id number] Admission Date: 01-21-2018 : 1940 Admission Diagnosis:GENERALIZED EDEMA Attending: MEJIA TINSLEY Current LOS: 3 Anticipated DC Date: Planned Disposition: Nursing Facility [facility] Cert Primary Insurance: [facility] MEDICARE SOLUTIONS PLANNED EXTERNAL PROVIDER: [place], LONG TERM CARE MEDICAID BED Discharge Planning Comments: * Is the patient Alert and Oriented? Yes 0 * How many steps to enter\exit or inside your home? NONE 0 * PCP DR. DESIRAE DEAN 0 * Pharmacy [facility] IN [place] 0 * Preadmission Environment Electrician Maintenance [facility] 0 * Facility Name [facility] [phone] 0 * ADLs Partial Dependent 0 * Partial ADLs (Assistance needed) Ambulation Bathing Medication Management Transfers 0 * Equipment Other 0 * Other Equipment ALL MEDICAL EQUIPMENT PROVIDED BY FACILITY 0 * List name and contact numbers for known caregivers / representatives who currently or will assist patient after discharge: MILO LUNDBERG, SISTER, 0 * Verbal permission to speak to the caregivers and representatives has been obtained from the patient. N/A 0 * Community resources currently utilized None 0 * Please name any agencies selected above. NONE 0 * Additional services required to return to the preadmission environment? No 0 * Can the patient safely return to the preadmission environment? Yes 0 * Has this patient been hospitalized within the prior 30 days at any hospital? Yes 0 CM RECEIVED ORDER FOR INPATIENT REHAB PRESCREENING; CM WITH PT IN ROOM TO DISCUSS DISCHARGE PLANNING AND NEEDS. PT REPORTS LIVING AT [facility] IN [place]; SHE WENT TO REHAB AND NOW STAYS THERE. PT HAS WALKER AND BEDSIDE COMMODE PROVIDED BY FACILITY. CM DISCUSSED AVAILABILITY OF HOME HEALTH, REHAB SERVICES AND MEDICAL EQUIPMENT. PT DOES NOT WANT TO STAY AT [place] FOR REHAB AND WOULD LIKE TO RETURN TO [facility] SHE WILL BE CLOSE TO FAMILY AND THEY CAN VISIT HER THERE. IMPORTANT MESSAGE FROM MEDICARE PROVIDED AND EXPLAINED. CM NOTIFIED YOJANA OF INPATIENT REHAB. CM CALLED [facility], , SPOKE TO BENTON WHO INFORMED CM THAT PT IS IN MEDICAID COMPUTER SYSTEMS ARCHITECT CARE BED AND WILL RETURN TO THE FACILITY IN COMPUTER SYSTEMS ARCHITECT CARE THEY DO NOT THINK PT HAS ANY SKILLED DAYS REMAINING. CM SPOKE TO NURSE BRINK, PROVIDED HOSPITAL UPDATE. CM FAXED UPDATE TO [facility] AT [phone]. PT DECLINES INPATIENT REHAB, WANTS TO RETURN TO [facility] WHERE SHE LIVES. FOR DISCHARGE BACK TO COMPUTER SYSTEMS ARCHITECT CARE, CALL NURSE REPORT TO [facility] AT [phone]. FAX DISCHARGE INFORMATION TO [facility] AT [phone]. [facility] TO ARRANGE VAN TRANSPORTATION. Stock Letterer: James Burns DCPIA - Discharge Planning Initial Assessment Updated by [id number]: James Burns on 01/24/18 2:23 pm * Is the patient Alert and Oriented? Yes * How many steps to enter\exit or inside your home? NONE * PCP DR. DESIRAE DEAN * Pharmacy [facility] [place] * Preadmission Environment Electrician Maintenance [facility] * Facility Name [facility] [phone] * ADLs Partial Dependent * Partial ADLs (Assistance needed) Ambulation Bathing Medication Management Transfers * Equipment Other * Other Equipment ALL MEDICAL EQUIPMENT PROVIDED BY FACILITY * List name and contact numbers for known caregivers / representatives who currently or will assist patient after discharge: MILO LUNDBERG, SISTER, * Verbal permission to speak to the caregivers and representatives has been obtained from the patient. N/A * Community resources currently utilized None * Please name any agencies selected above. NONE * Additional services required to return to the preadmission environment? No * Can the patient safely return to the preadmission environment? Yes * Has this patient been hospitalized within the prior 30 days at any hospital? Yes Coverage Notice Reviewer: [id number] Heather Burns Notice Issued Date-Time: 01/24/2018 13:30 Notice Type: IM Discharge Notice Notice Delivered To: Patient Relationship to Patient: [place] Name: Delivery Method: HAND - Hand Delivered Maureen Days: Prior Verbal Notification: Recipient Understood Notice: Yes Recipient Signature: Yes Med Rec Note Co-signed by Attending: Coverage Notice Comment: Last DP export: 01/25/18 2:13 Patient Name: SHAWNEE OCHOA Page 74039 at 1039 All edits/amendments must be made on the electronic document DICTATION DATE: 02/01/18 1039 SURVEY CHIEF: GEOVANNA 02/01/18 1039 RPT#: [id number] DC DATE: STATUS: ADM IN [facility] [address] [place] [address] END OF REPORT
--- NOTE | ~2018-01-21 | MORECARE ---
CASE MANAGEMENT DISCHARGE SUMMARY PATIENT: SHAWNEE OCHOA UNIT: [id number] ADM DATE: 01/21/18 AGE: 77 : 38 SEX: F ROOM/BED: D.6407 AUTHOR: AL,DOC PHYSICIAN: REFERRING PHYSICIAN: MEJIA TINSLEY MD DATE OF SERVICE: 02/02/18 Discharge Plan Patient Name: SHAWNEE OCHOA Facility: [facility]:[place] : 1940 Planned Disposition: Nursing Facility [facility] Cert Anticipated Discharge Date: 02/02/18 Discharge Date: Expected LOS: 12 Initial Reviewer: [id number] Initial Review Date: 01/24/2018 Generated: 02/02/18 2:54 pm Comments DCP- Discharge Planning Updated by [id number]: James Burns on 02/02/18 12:[address] Patient Name: SHAWNEE OCHOA Encounter No: [id number] : 1940 Primary Insurance: [facility] MEDICARE SOLUTIONS Anticipated DC Date: 02-02-2018 Planned Disposition: Nursing Facility [facility] Cert External Planned Provider: [facility], LONG TERM CARE MEDICAID BED DCP follow-up note: ANSHUL RECEIVED CALL FROM LEWIS OF [facility], . LEWIS RECEIVED UPDATE FROM ANSHUL, LEWIS HAS TALKED TO RACHEL AT [facility] OUTPATIENT DIALYSIS AND PATIENT HAS BEEN ACCEPTED WITH SCHEDULE FOR MWF, 1100AM, [facility] CAN ACCOMODATE THIS SCHEDULE AND WILL ACCEPT PT BACK TODAY. ANSHUL NOTIFIED PATIENT PATHWAYS COORDINATOR MANNY VIEYRA WHO ENA CONTACT DIALYSIS UNIT TO CONFIRM ARRANGEMENT. LEWIS REPORTS PT WAS NOT ABLE TO SIT FOR DURATION OF TRANSPORT TO [place] PRIOR TO ADMISSION AND WILL LIKELY REQUIRE AMBULANCE TO GET BACK TO [place] TODAY. PT NOTIFIED AND IN AGREEMENT WITH RETURN TO [facility] TODAY. IMPORTANT MESSAGE FROM MEDICARE PROVIDED AND EXPLAINED. DHARMESH JARVIS NOTIFIED. KNOBBER NURSE NOTIFIED. FOR DISCHARGE BACK TO [facility], CALL NURSE REPORT TO [facility] AT [phone]. FAX DISCHARGE INFORMATION TO [facility] AT [phone]. PT TO TRANSPORT VIA AMBULANCE. Mailroom Associate: James Burns. Appended by James Burns on 02/02/2018 13:43 CDT: CM RECEIVED DISCHARGE ORDER, FAXED DISCHARGE INFORMATION TO [facility] AT [phone]. MANNY OF PATIENT PATHWAYS VERIFIED DIALYSIS CLINIC ARRANGEMENT PROVIDED BY [facility], CM RECEIVED WELCOME LETTER, PLACED IN CHART. CALL NURSE REPORT TO [facility] AT [phone]. PT TO TRANSPORT VIA AMBULANCE. Mailroom Associate: James Burns. DCP- Discharge Planning Updated by [id number]: James Burns on 02/01/18 9:[address] Patient Name: SHAWNEE OCHOA Encounter No: [id number] : 1940 Primary Insurance: [facility] MEDICARE SOLUTIONS Anticipated DC Date: Planned Disposition: Nursing Facility [facility] Cert External Planned Provider: [facility], LONG TERM CARE MEDICAID BED DCP follow-up note: ANSHUL RECEIVED CALL FROM LEWIS OF [facility], . LEWIS RECEIVED UPDATE FROM , NOTIFIED PT WILL REQUIRE OUTPATIENT DIALYSIS AND PATIENT PATHWAYS COORDINATOR HAS REQUESTED TUESDAY,TUESDAY, TUESDAY OUTPATIENT DIALYSIS SCHEDULE. LEWIS WILL CALL DIALYSIS CENTER ALSO TO ENSURE SCHEDULE [facility] CAN ACCOMODATE IS RECEIVED. PT WILL NEED A Tuesday SCHEDULE FOR THE [facility] TO ACCEPT BACK FOR [facility] THEY DO NOT HAVE WEEKEND TRANSPORTATION FOR DIALYSIS. ANSHUL FAXED UPDATE TO [facility] AT [phone]. CM WAITING OUTPATIENT DIALYSIS SCHEDULE ARRANGEMENT. FOR DISCHARGE BACK TO [facility], CALL NURSE REPORT TO [facility] AT [phone]. FAX DISCHARGE INFORMATION TO [facility] AT [phone]. [facility] TO ARRANGE VAN TRANSPORTATION. Mailroom Associate: James Burns. DCP- Discharge Planning Updated by [id number]: James Burns on 01/25/18 2:[address] Patient Name: SHAWNEE OCHOA Encounter No: [id number] : 1940 Primary Insurance: [facility] MEDICARE SOLUTIONS Anticipated DC Date: Planned Disposition: Nursing Facility [facility] Cert External Planned Provider: [facility] MEDICAID BED DCP follow-up note: ANSHUL RECEIVED CALL FROM LEWIS OF [facility], . LEWIS RECEIVED UPDATE FROM CM AND WANTED PROJECTED DATE THAT PT MAY NEED DIALYSIS. CM SPOKE TO RENAL NURSE JAX WHO REPORTS NO WAY TO PREDICT THIS AT THIS TIME. LEWIS ALSO WANTED CM TO KNOW THAT IF PT NEEDS DIALYSIS, SHE WILL NEED A Tuesday SCHEDULE FOR [facility] TO ACCEPT BACK FOR [facility] THEY DO NOT HAVE WEEKEND TRANSPORTATION FOR DIALYSIS. FOR DISCHARGE BACK TO [facility], CALL NURSE REPORT TO [facility] AT [phone]. FAX DISCHARGE INFORMATION TO [facility] AT [phone]. [facility] TO ARRANGE VAN TRANSPORTATION. Mailroom Associate: James Burns. DCP- Discharge Planning Updated by [id number]: James Burns on 01/24/18 1:[address] Patient Name: SHAWNEE OCHOA Admission Status: Elective Accout number: [id number] Admission Date: 01-21-2018 : 1940 Admission Diagnosis:GENERALIZED EDEMA Attending: MEJIA TINSLEY Current LOS: 3 Anticipated DC Date: Planned Disposition: Nursing Facility [facility] Primary Insurance: [facility] MEDICARE SOLUTIONS PLANNED EXTERNAL PROVIDER: [facility], LONG TERM CARE MEDICAID BED Discharge Planning Comments: * Is the patient Alert and Oriented? Yes 0 * How many steps to enter\exit or inside your home? NONE 0 * PCP DR. DESIRAE DEAN 0 * Pharmacy [facility] IN [place] 0 * Preadmission Environment [facility] 0 * Facility Name [facility] [phone] * ADLs Partial Dependent 0 * Partial ADLs (Assistance needed) Ambulation Bathing Medication Management Transfers 0 * Equipment Other 0 * Other Equipment ALL MEDICAL EQUIPMENT PROVIDED BY FACILITY 0 * List name and contact numbers for known caregivers / representatives who currently or will assist patient after discharge: MILO LUNDBERG, SISTER, 0 * Verbal permission to speak to the caregivers and representatives has been obtained from the patient. N/A 0 * Community resources currently utilized None 0 * Please name any agencies selected above. NONE 0 * Additional services required to return to the preadmission environment? No 0 * Can the patient safely return to the preadmission environment? Yes 0 * Has this patient been hospitalized within the prior 30 days at any hospital? Yes 0 CM RECEIVED ORDER FOR INPATIENT REHAB PRESCREENING; CM WITH PT IN ROOM TO DISCUSS DISCHARGE PLANNING AND NEEDS. PT REPORTS LIVING AT [facility] IN [place]; SHE WENT TO REHAB AND NOW STAYS THERE. PT HAS WALKER AND BEDSIDE COMMODE PROVIDED BY FACILITY. CM DISCUSSED AVAILABILITY OF HOME HEALTH, REHAB SERVICES AND MEDICAL EQUIPMENT. PT DOES NOT WANT TO STAY AT [facility] FOR REHAB AND WOULD LIKE TO RETURN TO [facility] SHE WILL BE CLOSE TO FAMILY AND THEY CAN VISIT HER THERE. IMPORTANT MESSAGE FROM MEDICARE PROVIDED AND EXPLAINED. CM NOTIFIED YOJANA OF INPATIENT REHAB. CM CALLED [facility], , SPOKE TO [place] WHO INFORMED CM THAT PT IS IN MEDICAID [facility] BED AND WILL RETURN TO THE FACILITY IN [facility] THEY DO NOT THINK PT HAS ANY SKILLED DAYS REMAINING. CM SPOKE TO NURSE BRINK, PROVIDED HOSPITAL UPDATE. CM FAXED UPDATE TO [facility] AT [phone]. PT DECLINES INPATIENT REHAB, WANTS TO RETURN TO [facility] WHERE SHE LIVES. FOR DISCHARGE BACK TO [facility], CALL NURSE REPORT TO [facility] AT [phone]. FAX DISCHARGE INFORMATION TO [facility] AT [phone]. [facility] TO ARRANGE VAN TRANSPORTATION. Mailroom Associate: James Burns DCPIA - Discharge Planning Initial Assessment Updated by [id number]: James Burns on 01/24/18 2:23 pm * Is the patient Alert and Oriented? Yes * How many steps to enter\exit or inside your home? NONE * PCP DR. DESIRAE DEAN * Pharmacy [facility] IN [place] * Preadmission Environment [employer] Super[employer] [facility] * [facility] * ADLs Partial Dependent * Partial ADLs (Assistance needed) Ambulation Bathing Medication Management Transfers * Equipment Other * Other Equipment ALL MEDICAL EQUIPMENT PROVIDED BY FACILITY * List name and contact numbers for known caregivers / representatives who currently or will assist patient after discharge: MILO LUNDBERG, SISTER, * Verbal permission to speak to the caregivers and representatives has been obtained from the patient. N/A * Community resources currently utilized None * Please name any agencies selected above. NONE * Additional services required to return to the preadmission environment? No * Can the patient safely return to the preadmission environment? Yes * Has this patient been hospitalized within the prior 30 days at any hospital? Yes Coverage Notice Reviewer: [id number] Burns Notice Issued Date-Time: 01/24/2018 13:30 Notice Type: IM Discharge Notice Notice Delivered To: Patient Relationship to Patient: Medical Registrar Name: Delivery Method: HAND - Hand Delivered Maureen Days: Prior Verbal Notification: Recipient Understood Notice: Yes Recipient Signature: Yes Med Rec Note Co-signed by Attending: Coverage Notice Comment: Reviewer: MIKAEL Burns Notice Issued Date-Time: 02/02/2018 11:25 Notice Type: IM Discharge Notice Notice Delivered To: Patient Relationship to Patient: Medical Registrar Name: Delivery Method: HAND - Hand Delivered Maureen Days: Prior Verbal Notification: Recipient Understood Notice: Yes Recipient Signature: Yes Med Rec Note Co-signed by Attending: Coverage Notice Comment: Last DP export: 02/02/18 12:45 Patient Name: SHAWNEE OCHOA Page [id number] at 1355 All edits/amendments must be made on the electronic document DICTATION DATE: 02/02/18 1354 PAPER GOODS MACHINE OPERATOR: GEOVANNA 02/02/18 1354 RPT#: [id number] DC DATE: STATUS: ADM IN [facility] [address] [place] [address] END OF REPORT
--- NOTE | ~2018-01-21 | CN ---
PATIENT NAME:SHAWNEE JOY MEDICAL RECORD: [id number] : [birth year] LOCATION:. D.2120 ADMIT DATE: 01/21/18 ACCOUNT: [id number] CONSULTING PHYSICIAN: PREETI SUAREZ MD REFERRING PHYSICIAN: MEJIA TINSLEY MD DATE OF CONSULTATION: 01/27/2018 DIAGNOSES: 1. Elevated troponin. 2. Aefaz-fi-xwfdssh renal insufficiency. 3. Pneumonia. 4. Respiratory failure. 5. Hypertension. 6. Diabetes. HISTORY OF PRESENT ILLNESS: Ms. Joy was transferred from [place] for higher level of care. She does have chronic kidney disease. Her creatinine is in the 4.0 range. She supposedly had a combination of systolic and diastolic heart failure as well as pneumonia. She is a long term patient. She is a poor historian. No family is present. Her troponin is 5.7. Her EKG is with no acute ST-T abnormalities. She is on hydralazine and carvedilol here for blood pressure and heart rate. Heart rate is in the 50s and systolic blood pressure is approximately 100. She denies any chest pain. PHYSICAL EXAMINATION: GENERAL APPEARANCE: Well-nourished, well-developed, appears stated age. Level of distress, comfortable. PSYCHIATRIC: Mental status, alert, normal affect. Orientation, oriented to time, place and person. EYES: Lids and conjunctiva, noninjected. No discharge, no pallor. ENT: Lips, teeth, gums, normal dentition. Oropharynx, no cyanosis, no pallor. NECK: Carotid arteries, bilateral normal upstroke, no bruits, no thrills. JUGULAR VEINS: No jugular venous pressure or distention. CERVICAL LYMPH NODES: Nontender, nonenlarged. THYROID: Not enlarged. Nontender. No nodules. LUNGS: Respiratory effort, unlabored. CHEST: Normal curvature. No thoracic deformity. No chest wall tenderness. Percussion, resonant. Auscultation, clear. No wheezes, no rales, no rhonchi. CARDIOVASCULAR: Precordial exam, nondisplaced. No heaves or pericardial thrills. Rate and rhythm, regular. Heart sounds, normal S1, normal S2. No S3, no gallop, no rub. Systolic murmur, not heard. Diastolic murmur, not heard. EXTREMITIES: No cyanosis, no edema. Peripheral pulses, full and equal in all extremities, except as noted. No bruits appreciated. ABDOMEN: Soft, nondistended. Normal aorta. No bruit. Nontender. No masses. Liver, nontender, no hepatomegaly. Spleen, nontender, no splenomegaly. MUSCULOSKELETAL: No joint tenderness. No joint swelling. No erythema. NEUROLOGICAL: Normal gait, normal strength, normal tone. SKIN: Warm and dry. OVERALL IMPRESSION: Non-Q-wave myocardial infarction, very well may be related to the high BUN and creatinine. At this point would only treat medically. Her heart rate and blood pressure are optimal on her current medications. We will add an aspirin. No other cardiac workup or treatment will be necessary at this time. CONSULT REPORT [id number] SHAWNEE JOY TRANSINT:[id number] Voice Confirmation ID: [id number] DOCUMENT ID: [id number] PREETI SUAREZ MD at 0924 CC: [id number] DICTATION DATE: 01/27/18 115 PLASTICS PATTERNMAKER: 01/27/18 1203 DIS IN 02/02/18 [facility] [address] [place] [address]
--- NOTE | ~2018-01-21 | EC ---
PATIENT:SHAWNEE OCHOA DATE OF SERVICE: 01/21/18 SEX: F MEDICAL RECORD: [id number] DATE OF : [birth year] LOCATION:D.M2 D.212 AGE OF PATIENT: 77 ADMISSION DATE: 01/21/18 REFERRING PHYSICIAN: INTERPRETING PHYSICIAN: TRINA CARRINGTON MD ECHOCARDIOGRAM REPORT ECHO CHARGES 4 ECHO COMPLETE Date: 01/23/17 CLINICAL DIAGNOSIS: DYSPNEA/CHF ECHOCARDIOGRAPHIC MEASUREMENTS (adult normal given) AC root (d.<3.7cm) 3.0 cm LV Septum d (<1.2 cm> 1.0 cm Valve Excursion 1.7 cm LV Septum (systole) 1.5 cm Left Atria (s.<4.0cm> 4.3 cm LVPW d(<1.2cm) 1.4 cm RV (d.<2.3cm) 3.3 cm LVPW (sytole) 1.8 cm LV diastole(<5.6CM) 5.9 cm MV E-F(>70mm/sec) cm LV systole 4.9 cm LVOT Diameter 1.7 cm MV exc.(>10mm) cm Est.ejection fraction (50-75%) % DOPPLER: LVIT cm/sec A 92.0 cm/sec E 155 cm/sec LA cm/sec RVSP 50.4 mmHg LVOT 60.0 cm/sec AOP1/2T m/s Asc. Ao 126 cm/sec RVOT 51.0 cm/sec RA cm/sec PA 110 cm/sec AV Gradient Peak 6.4 mmHg AV Mean 3.1 mmHg AV Area 0.8 cm MV Gradient Peak 9.0 mmHg MV Mean 2.9 mmHg MV Area cm COMMENTS: Securities Supervisor: 1 SE [place] Patent Law Specialist: 3 Dr. Jaramillo TAPE# PACS Pericardial Effusion N DATE OF SERVICE: Adequate 2D, color flow and spectral Doppler, and M-mode. No LVH. LV internal dimensions are normal. LV is globally hypokinetic, reduced EF, estimated at 25% to 30%. Aortic valve sclerosis without stenosis by Doppler interrogation. Left atrium is dilated at 4.3 cm. Mitral valve is thickened. Moderate MR. Right-sided chambers grossly normal. Moderate TR. TRANSINT:[id number] Voice Confirmation ID: [id number] DOCUMENT ID: [id number] ECHOCARDIOGRAM REPORT [id number] SHAWNEE OCHOA,TRINA Le MD at 0829 CC: [id number] DICTATION DATE: 01/23/18 1036 COMPUTER TECHNOLOGY TEACHER: 01/23/18 1319 ADM IN [place] [id number] [place] [address]
[2018-01-21] MEDS ORDERED: NORVASC10 MG PO (17:43)
[2018-01-21] MEDS ORDERED: LASIX40 MG PO (17:46)
[2018-01-21] MEDS ORDERED: BASAGLAR K100 UNIT/1 SQ (17:48)
[2018-01-21] MEDS ORDERED: ZOCOR10 MG PO (17:48)
[2018-01-21] MEDS ORDERED: COREG 3.1253.125 MG PO (17:49)
[2018-01-21] MEDS ORDERED: MUCINEX600 MG PO (17:49)
[2018-01-21] MEDS ORDERED: HYDRALAZINE HCL25 MG PO (17:50)
[2018-01-21] MEDS ORDERED: HUMALOG 30100 UNITS/ SC (17:50)
[2018-01-21] MEDS ORDERED: ZOFRAN8 MG PO (17:51)
[2018-01-21] MEDS ORDERED: ROBITUSSIN DM 110 ML PO (17:52)
[2018-01-21] MEDS ORDERED: ACETAMINOPHEN325 MG PO (17:53)
[2018-01-21] MEDS ORDERED: TESSALON PERLE100 MG PO (17:56)
[2018-01-21] MEDS ORDERED: ROCEPHIN 1 GM/D51 G1 IV (17:56)
[2018-01-21] MEDS ORDERED: LOVENOX30 MG/0.3 SC (17:59)
[2018-01-21] MEDS ORDERED: IPRAT-ALBUT 0.5-3 ML UPD (18:00)
[2018-01-21 18:04] VITALS: BP 154/80; BMI 32.0
[2018-01-21 20:00] VITALS: BP 133/62
[2018-01-22] VITALS: BP 138/75
[2018-01-22 04:00] VITALS: BP 150/74
[2018-01-22 05:28] LABS: BASOPHILS 0.2 % (0-2); EOSINOPHILS 0.5 % (0-7); HEMATOCRIT 26.5 % (36.0-48.0); HEMOGLOBIN 8.6 g/dL (12-16); IMMATURE GRANULOCYTES 0.3 % (0-5); LYMPHOCYTES 6.7 % (15-50); MCH 27.4 pg (26.0-34.0); MCHC 32.5 g/dL (31.0-37.0); MCV 84.4 fL (80.0-100.0); MEAN PLATELET VOLUME 10.8 fL (7.4-10.4); MONOCYTES 18.2 % (2-11); NEUTROPHILS 74.1 % (40-80); PLATELET COUNT 195 10x3/uL (130-400); RBC 3.14 10x6/uL (4.00-5.40); RDW 15.9 % (11.5-14.5); WBC 10.3 10x3/uL (4.8-10.8)
[2018-01-22 06:19] LABS: ALBUMIN 2.5 g/dL (3.4-5.0); ANION GAP 15.8 mmol/L (8-16); BILIRUBIN - TOTAL 0.45 mg/dL (0.2-1.3); CALCIUM 8.8 mg/dL (8.5-10.1); CREATININE - SERUM 4.1 mg/dL (0.6-1.3); MAGNESIUM - SERUM 2.2 mg/dL (1.8-2.4); POTASSIUM - SERUM 4.8 mmol/L (3.5-5.1); PROTEIN - SERUM 7.2 g/dL (6.4-8.2)
[2018-01-22 08:04] VITALS: BP 148/68
[2018-01-22 11:01] VITALS: BP 143/74
[2018-01-22 11:59] LABS: APPEARANCE CLEAR (CLEAR); COLOR YELLOW (YELLOW)
[2018-01-22 12:00] LABS: BILIRUBIN NEGATIVE (NEGATIVE); EPITHELIAL CELLS 0-5 /hpf (0-5); GLUCOSE NEGATIVE (NEGATIVE); KETONE NEGATIVE (NEGATIVE); NITRITE NEGATIVE (NEGATIVE); PROTEIN 2+ mg/dL (NEGATIVE); UROBILINOGEN NORMAL (NORMAL); WHITE CELLS - URINE 0-5 /hpf (0-5)
[2018-01-22 15:00] VITALS: BP 147/63
[2018-01-22 20:00] VITALS: BP 167/64
[2018-01-23 00:11] VITALS: BP 159/78
[2018-01-23 04:00] VITALS: BP 180/78
[2018-01-23 04:52] LABS: BASOPHILS 0.1 % (0-2); EOSINOPHILS 0 % (0-7); HEMATOCRIT 28.3 % (36.0-48.0); HEMOGLOBIN 9.3 g/dL (12-16); IMMATURE GRANULOCYTES 0.4 % (0-5); MCH 27.4 pg (26.0-34.0); MCHC 32.9 g/dL (31.0-37.0); MCV 83.2 fL (80.0-100.0); MEAN PLATELET VOLUME 10.9 fL (7.4-10.4); MONOCYTES 8.6 % (2-11); NEUTROPHILS 84.9 % (40-80); PLATELET COUNT 220 10x3/uL (130-400); RDW 15.7 % (11.5-14.5); WBC 17.6 10x3/uL (4.8-10.8)
[2018-01-23 05:06] LABS: % SATURATION 6 % (15-55); IRON 13 ug/dl (35-150); TOTAL IRON BIND CAPACITY 198 ug/dl (260-445); UNSAT IRON BIND CAPACITY 185 ug/dl (150-375)
[2018-01-23 05:24] LABS: ALBUMIN 2.3 g/dL (3.4-5.0); BILIRUBIN - TOTAL 0.47 mg/dL (0.2-1.3); CALCIUM 9.2 mg/dL (8.5-10.1); CARBON DIOXIDE 21.3 mmol/L (21.0-32.0); MAGNESIUM - SERUM 2.3 mg/dL (1.8-2.4); PHOSPHOROUS 6.5 mg/dL (2.5-4.9); POTASSIUM - SERUM 5.3 mmol/L (3.5-5.1); PROTEIN - SERUM 7.5 g/dL (6.4-8.2)
[2018-01-23 08:23] VITALS: BP 140/70
[2018-01-23 11:21] VITALS: BP 134/85
[2018-01-23 14:07] VITALS: BMI 31.9
[2018-01-23 15:41] VITALS: BP 130/68
[2018-01-23 20:00] VITALS: BP 146/74
[2018-01-24] VITALS: BP 147/82
[2018-01-24 04:00] VITALS: BP 155/78
[2018-01-24 06:23] LABS: BASOPHILS 0.1 % (0-2); EOSINOPHILS 0.4 % (0-7); HEMOGLOBIN 8.9 g/dL (12-16); IMMATURE GRANULOCYTES 0.5 % (0-5); MCH 27.1 pg (26.0-34.0); MCV 82.3 fL (80.0-100.0); MEAN PLATELET VOLUME 10.6 fL (7.4-10.4); MONOCYTES 9.4 % (2-11); NEUTROPHILS 78.6 % (40-80); PLATELET COUNT 202 10x3/uL (130-400); RBC 3.28 10x6/uL (4.00-5.40); RDW 15.9 % (11.5-14.5)
[2018-01-24 06:28] LABS: WBC 10.9 10x3/uL (4.8-10.8)
[2018-01-24 06:40] LABS: ALBUMIN 2.1 g/dL (3.4-5.0); ANION GAP 15.3 mmol/L (8-16); BILIRUBIN - TOTAL 0.48 mg/dL (0.2-1.3); CALCIUM 8.9 mg/dL (8.5-10.1); CARBON DIOXIDE 21.3 mmol/L (21.0-32.0); CREATININE - SERUM 3.9 mg/dL (0.6-1.3); MAGNESIUM - SERUM 2.1 mg/dL (1.8-2.4); PHOSPHOROUS 6.1 mg/dL (2.5-4.9); POTASSIUM - SERUM 4.6 mmol/L (3.5-5.1); PROTEIN - SERUM 6.9 g/dL (6.4-8.2)
[2018-01-24 08:00] VITALS: BP 116/74
[2018-01-24 08:20] LABS: FOLATE (FOLIC ACID) - SERUM >20.0 ng/mL (>3.0)
[2018-01-24 11:40] VITALS: BP 107/56
[2018-01-24 15:04] VITALS: Ht 167.6 cm; Wt 58.9 kg
[2018-01-24 16:11] VITALS: BP 107/62
[2018-01-24 20:21] VITALS: BP 131/64
[2018-01-25] VITALS: BP 127/55
[2018-01-25 04:00] VITALS: BP 115/57
[2018-01-25 05:11] LABS: BASOPHILS 0.1 % (0-2); EOSINOPHILS 0.6 % (0-7); HEMATOCRIT 25.4 % (36.0-48.0); HEMOGLOBIN 8.3 g/dL (12-16); IMMATURE GRANULOCYTES 0.2 % (0-5); LYMPHOCYTES 4.7 % (15-50); MCH 27.1 pg (26.0-34.0); MCHC 32.7 g/dL (31.0-37.0); MEAN PLATELET VOLUME 10.9 fL (7.4-10.4); NEUTROPHILS 79.4 % (40-80); PLATELET COUNT 193 10x3/uL (130-400); RBC 3.06 10x6/uL (4.00-5.40); WBC 9.3 10x3/uL (4.8-10.8)
[2018-01-25 05:30] LABS: ALBUMIN 1.9 g/dL (3.4-5.0); ANION GAP 15.7 mmol/L (8-16); BILIRUBIN - TOTAL 0.25 mg/dL (0.2-1.3); CALCIUM 8.8 mg/dL (8.5-10.1); CARBON DIOXIDE 19.5 mmol/L (21.0-32.0); CREATININE - SERUM 3.9 mg/dL (0.6-1.3); MAGNESIUM - SERUM 2.1 mg/dL (1.8-2.4); PHOSPHOROUS 6.1 mg/dL (2.5-4.9); POTASSIUM - SERUM 4.2 mmol/L (3.5-5.1); PROTEIN - SERUM 6.4 g/dL (6.4-8.2)
[2018-01-25 09:30] VITALS: BP 154/80
[2018-01-25 20:00] VITALS: BP 124/58
[2018-01-26 00:46] VITALS: BP 129/64
[2018-01-26 04:00] VITALS: BP 112/73
[2018-01-26 05:57] LABS: BASOPHILS 0.1 % (0-2); EOSINOPHILS 0.8 % (0-7); HEMATOCRIT 25.2 % (36.0-48.0); HEMOGLOBIN 8.2 g/dL (12-16); IMMATURE GRANULOCYTES 0.4 % (0-5); LYMPHOCYTES 7.7 % (15-50); MCH 27.3 pg (26.0-34.0); MCHC 32.5 g/dL (31.0-37.0); MEAN PLATELET VOLUME 11.2 fL (7.4-10.4); MONOCYTES 12.8 % (2-11); NEUTROPHILS 78.2 % (40-80); PLATELET COUNT 211 10x3/uL (130-400); RDW 16.2 % (11.5-14.5); WBC 7.1 10x3/uL (4.8-10.8)
[2018-01-26 06:23] LABS: BILIRUBIN - TOTAL 0.19 mg/dL (0.2-1.3); CALCIUM 8.8 mg/dL (8.5-10.1); CARBON DIOXIDE 19.5 mmol/L (21.0-32.0); CREATININE - SERUM 4.1 mg/dL (0.6-1.3); MAGNESIUM - SERUM 2.2 mg/dL (1.8-2.4); PHOSPHOROUS 6.3 mg/dL (2.5-4.9); POTASSIUM - SERUM 4.5 mmol/L (3.5-5.1); PROTEIN - SERUM 6.5 g/dL (6.4-8.2)
[2018-01-26 08:48] VITALS: BP 128/67
[2018-01-26 12:21] VITALS: BP 132/71
[2018-01-26 18:11] VITALS: BP 134/66
[2018-01-26 23:12] VITALS: BP 141/73
[2018-01-27 02:38] VITALS: BP 108/48
[2018-01-27 05:09] LABS: BASOPHILS 0.1 % (0-2); EOSINOPHILS 0.8 % (0-7); HEMATOCRIT 25.8 % (36.0-48.0); HEMOGLOBIN 8.2 g/dL (12-16); IMMATURE GRANULOCYTES 0.5 % (0-5); LYMPHOCYTES 6.8 % (15-50); MCH 27.1 pg (26.0-34.0); MCHC 31.8 g/dL (31.0-37.0); MCV 85.1 fL (80.0-100.0); MEAN PLATELET VOLUME 10.3 fL (7.4-10.4); NEUTROPHILS 78.8 % (40-80); PLATELET COUNT 176 10x3/uL (130-400); RBC 3.03 10x6/uL (4.00-5.40); RDW 16.5 % (11.5-14.5)
[2018-01-27 05:28] LABS: ALBUMIN 1.9 g/dL (3.4-5.0); ANION GAP 17.6 mmol/L (8-16); BILIRUBIN - TOTAL 0.12 mg/dL (0.2-1.3); CALCIUM 8.7 mg/dL (8.5-10.1); CARBON DIOXIDE 18.2 mmol/L (21.0-32.0); MAGNESIUM - SERUM 2.2 mg/dL (1.8-2.4); PHOSPHOROUS 6.3 mg/dL (2.5-4.9); POTASSIUM - SERUM 4.8 mmol/L (3.5-5.1); PROTEIN - SERUM 6.3 g/dL (6.4-8.2)
[2018-01-27 06:07] VITALS: BP 129/72
[2018-01-27 08:00] VITALS: BP 118/61
[2018-01-27 20:00] VITALS: BP 122/63
[2018-01-28] VITALS: BP 129/64
[2018-01-28 04:00] VITALS: BP 136/69
[2018-01-28 06:01] LABS: BASOPHILS 0.1 % (0-2); EOSINOPHILS 0.2 % (0-7); HEMATOCRIT 23.7 % (36.0-48.0); HEMOGLOBIN 7.7 g/dL (12-16); IMMATURE GRANULOCYTES 0.7 % (0-5); LYMPHOCYTES 9.5 % (15-50); MCH 26.9 pg (26.0-34.0); MCHC 32.5 g/dL (31.0-37.0); MEAN PLATELET VOLUME 10.6 fL (7.4-10.4); MONOCYTES 11.2 % (2-11); NEUTROPHILS 78.3 % (40-80); PLATELET COUNT 189 10x3/uL (130-400); RBC 2.86 10x6/uL (4.00-5.40); RDW 16.3 % (11.5-14.5); WBC 8.5 10x3/uL (4.8-10.8)
[2018-01-28 06:10] LABS: MCV 82.9 fL (80.0-100.0)
[2018-01-28 06:31] LABS: CALCIUM 8.4 mg/dL (8.5-10.1); CARBON DIOXIDE 22.1 mmol/L (21.0-32.0); CREATININE - SERUM 3.4 mg/dL (0.6-1.3); POTASSIUM - SERUM 4.1 mmol/L (3.5-5.1)
[2018-01-28 08:39] VITALS: BP 112/50
[2018-01-28 10:42] VITALS: BP 121/73
[2018-01-28 14:56] VITALS: BP 130/56
[2018-01-28 20:00] VITALS: BP 137/71
[2018-01-29] VITALS: BP 147/72
[2018-01-29 04:00] VITALS: BP 148/80
[2018-01-29 05:58] LABS: BASOPHILS 0.2 % (0-2); EOSINOPHILS 0.5 % (0-7); HEMATOCRIT 27.6 % (36.0-48.0); HEMOGLOBIN 8.9 g/dL (12-16); IMMATURE GRANULOCYTES 1.1 % (0-5); MCH 27.5 pg (26.0-34.0); MCHC 32.2 g/dL (31.0-37.0); MEAN PLATELET VOLUME 10.4 fL (7.4-10.4); MONOCYTES 15.2 % (2-11); PLATELET COUNT 158 10x3/uL (130-400); RBC 3.24 10x6/uL (4.00-5.40); RDW 16.1 % (11.5-14.5); WBC 8.1 10x3/uL (4.8-10.8)
[2018-01-29 06:05] LABS: MCV 85.2 fL (80.0-100.0)
[2018-01-29 07:20] LABS: ANION GAP 19.9 mmol/L (8-16); CALCIUM 8.6 mg/dL (8.5-10.1); CARBON DIOXIDE 19.1 mmol/L (21.0-32.0); CREATININE - SERUM 3.6 mg/dL (0.6-1.3); VANCOMYCIN - RANDOM 11.2 ug/mL (10.0-20.0)
[2018-01-29 08:34] VITALS: BP 188/84
[2018-01-29 12:12] VITALS: BP 107/70
[2018-01-29 15:14] VITALS: BP 176/75
[2018-01-29 20:00] VITALS: BP 126/61
[2018-01-30] VITALS: BP 129/59
[2018-01-30 04:00] VITALS: BP 128/61
[2018-01-30 06:34] LABS: BASOPHILS 0.2 % (0-2); EOSINOPHILS 0.7 % (0-7); HEMATOCRIT 29.1 % (36.0-48.0); HEMOGLOBIN 9.5 g/dL (12-16); LYMPHOCYTES 9.7 % (15-50); MCH 27.9 pg (26.0-34.0); MCHC 32.6 g/dL (31.0-37.0); MCV 85.6 fL (80.0-100.0); MEAN PLATELET VOLUME 10.7 fL (7.4-10.4); MONOCYTES 10.7 % (2-11); NEUTROPHILS 77.7 % (40-80); PLATELET COUNT 189 10x3/uL (130-400); RDW 16.6 % (11.5-14.5)
[2018-01-30 06:35] LABS: WBC 10.8 10x3/uL (4.8-10.8)
[2018-01-30 06:44] LABS: APTT 38.3 SECONDS (22.8-39.4); CALCIUM 8.7 mg/dL (8.5-10.1); CREATININE - SERUM 3.9 mg/dL (0.6-1.3); INR 1.29 (0.85-1.17); POTASSIUM - SERUM 3.9 mmol/L (3.5-5.1); PROTEIN - SERUM 6.5 g/dL (6.4-8.2); PROTIME 15.6 SECONDS (11.6-15.0); VANCOMYCIN - RANDOM 15.6 ug/mL (10.0-20.0)
[2018-01-30 06:45] LABS: CARBON DIOXIDE 24.9 mmol/L (21.0-32.0)
[2018-01-30 09:17] VITALS: BP 135/68
[2018-01-30 11:05] VITALS: BP 135/68
[2018-01-30 11:19] LABS: PROTEIN - BODY FLUID 1.6 G/DL
[2018-01-30 14:17] LABS: EOS BF 1 %; MACROPHAGES BF 48 %; MESOTHELIALS BF 2 %; NEUT - BF 35 %
[2018-01-30 20:44] VITALS: BP 150/65
[2018-01-31 00:25] VITALS: BP 141/63
[2018-01-31 03:12] LABS: HEPATITIS C ANTIBODY <0.1 (0.0-0.9)
[2018-01-31 04:00] VITALS: BP 126/53
[2018-01-31 06:32] LABS: BASOPHILS 0.1 % (0-2); EOSINOPHILS 0.6 % (0-7); HEMATOCRIT 29.7 % (36.0-48.0); HEMOGLOBIN 9.5 g/dL (12-16); IMMATURE GRANULOCYTES 0.7 % (0-5); LYMPHOCYTES 5.2 % (15-50); MCH 27.8 pg (26.0-34.0); MCV 86.8 fL (80.0-100.0); MEAN PLATELET VOLUME 11.9 fL (7.4-10.4); MONOCYTES 11.6 % (2-11); NEUTROPHILS 81.8 % (40-80); PLATELET COUNT 226 10x3/uL (130-400); RBC 3.42 10x6/uL (4.00-5.40); RDW 16.8 % (11.5-14.5); WBC 13.8 10x3/uL (4.8-10.8)
[2018-01-31 06:43] LABS: ANION GAP 8.9 mmol/L (8-16); POTASSIUM - SERUM 3.7 mmol/L (3.5-5.1); VANCOMYCIN - RANDOM 16.5 ug/mL (10.0-20.0)
[2018-01-31 06:47] LABS: CARBON DIOXIDE 31.8 mmol/L (21.0-32.0); CREATININE - SERUM 2.9 mg/dL (0.6-1.3)
[2018-01-31 07:56] VITALS: BP 132/63
[2018-01-31 10:57] VITALS: BP 131/64
[2018-01-31 15:30] VITALS: BP 135/63
[2018-01-31 20:08] LABS: ACID FAST SMEAR Negative (()); AFB SPECIMEN PROCESSING Concentration (())
[2018-01-31 21:28] VITALS: BP 136/65
[2018-02-01 01:34] VITALS: BP 118/56
[2018-02-01 06:02] LABS: BASOPHILS 0.2 % (0-2); EOSINOPHILS 0.9 % (0-7); HEMATOCRIT 31.2 % (36.0-48.0); HEMOGLOBIN 9.8 g/dL (12-16); IMMATURE GRANULOCYTES 0.6 % (0-5); LYMPHOCYTES 7.6 % (15-50); MCH 27.5 pg (26.0-34.0); MCHC 31.4 g/dL (31.0-37.0); MCV 87.4 fL (80.0-100.0); NEUTROPHILS 79.7 % (40-80); PLATELET COUNT 235 10x3/uL (130-400); RBC 3.57 10x6/uL (4.00-5.40); RDW 17.1 % (11.5-14.5)
[2018-02-01 06:10] VITALS: BP 138/87
[2018-02-01 06:24] LABS: ANION GAP 10.1 mmol/L (8-16); CALCIUM 8.1 mg/dL (8.5-10.1); CARBON DIOXIDE 30.4 mmol/L (21.0-32.0); POTASSIUM - SERUM 3.5 mmol/L (3.5-5.1)
[2018-02-01 10:19] VITALS: BP 127/59
[2018-02-01 11:20] VITALS: BP 99/47
[2018-02-01 13:18] LABS: FUNGUS STAIN Final report (())
[2018-02-01 20:00] VITALS: BP 152/73
[2018-02-02] VITALS: BP 140/68
[2018-02-02 05:57] LABS: BASOPHILS 0.4 % (0-2); EOSINOPHILS 1.1 % (0-7); HEMATOCRIT 32.3 % (36.0-48.0); HEMOGLOBIN 10.3 g/dL (12-16); IMMATURE GRANULOCYTES 0.7 % (0-5); LYMPHOCYTES 9.7 % (15-50); MCH 27.7 pg (26.0-34.0); MCHC 31.9 g/dL (31.0-37.0); MCV 86.8 fL (80.0-100.0); MEAN PLATELET VOLUME 11.4 fL (7.4-10.4); MONOCYTES 13.6 % (2-11); NEUTROPHILS 74.5 % (40-80); PLATELET COUNT 230 10x3/uL (130-400); RBC 3.72 10x6/uL (4.00-5.40); RDW 17.5 % (11.5-14.5); WBC 10.7 10x3/uL (4.8-10.8)
[2018-02-02 06:07] LABS: ANION GAP 9.1 mmol/L (8-16); CARBON DIOXIDE 30.5 mmol/L (21.0-32.0); CREATININE - SERUM 2.4 mg/dL (0.6-1.3); POTASSIUM - SERUM 3.6 mmol/L (3.5-5.1); VANCOMYCIN - RANDOM 17.8 ug/mL (10.0-20.0)
[2018-02-02 07:27] VITALS: BP 138/70
[2018-02-02] MEDS ORDERED: ASPIRIN81 MG PO (11:54)
[2018-02-02] MEDS ORDERED: MUCINEX600 MG PO (11:55)
[2018-02-02] MEDS ORDERED: NEPHRO-VITE RX1 TAB PO (11:56)
[2018-02-02 12:10] VITALS: BP 135/79
[2018-02-06 15:19] LABS: FUNGUS MYCOLOGY CULTURE Preliminary report (())
== END 2018-02-02 16:21 | DRG 673 ==
LOC: D.M2 11:41
PROVIDERS: Emergency Medicine; Internal Medicine Nephrology; Internal Medicine Pulmonary Disease; Radiology Diagnostic Radiology; Surgery
PROC: 05CF3ZZ Extirpation of Matter from Left Cephalic Vein, Percutaneous Approach (ICD-10-PCS; 2018-01-26)
PROC: 05LY0ZZ Occlusion of Upper Vein, Open Approach (ICD-10-PCS; 2018-01-26)
PROC: 03CC0ZZ Extirpation of Matter from Left Radial Artery, Open Approach (ICD-10-PCS; 2018-01-26)
PROC: 02HV33Z Insertion of Infusion Device into Superior Vena Cava, Percutaneous Approach (ICD-10-PCS; 2018-01-26)
PROC: B5181ZA Fluoroscopy of Superior Vena Cava using Low Osmolar Contrast, Guidance (ICD-10-PCS; 2018-01-26)
PROC: 031C0ZF Bypass Left Radial Artery to Lower Arm Vein, Open Approach (ICD-10-PCS; 2018-01-26 13:30)
PROC: 0W993ZZ Drainage of Right Pleural Cavity, Percutaneous Approach (ICD-10-PCS; principal; 2018-01-30 08:41)
DX: N17.9 Acute kidney failure, unspecified (principal); J69.0 Pneumonitis due to inhalation of food and vomit; J96.21 Acute and chronic respiratory failure with hypoxia; I50.43 Acute on chronic combined systolic (congestive) and diastolic (congestive) heart failure; I21.A1 Myocardial infarction type 2; I13.2 Hypertensive heart and chronic kidney disease with heart failure and with stage 5 chronic kidney disease, or end stage renal disease; N18.6 End stage renal disease; E11.22 Type 2 diabetes mellitus with diabetic chronic kidney disease; E11.65 Type 2 diabetes mellitus with hyperglycemia; F03.90 Unspecified dementia, unspecified severity, without behavioral disturbance, psychotic disturbance, mood disturbance, and anxiety; D63.1 Anemia in chronic kidney disease; D50.9 Iron deficiency anemia, unspecified; E87.5 Hyperkalemia; Z79.4 Long term (current) use of insulin; I27.20 Pulmonary hypertension, unspecified; R53.81 Other malaise